=== PATIENT | female | born 1955 | race Caucasian/White ===

== ENCOUNTER → 2018-04-03 | Day surgery (SDC) | payer OTHER ==
[2018-04-02 15:46] VITALS: BP 99/52
--- NOTE | 2018-04-02 16:05 | PCM.EKG ---
[facility] Test Date: 2018-04-02 Test Time: 15:52:51 Pat Name: JERI DOVE Department: Room: Gender: F Public Health Doctor: ANGIE : 1955 Requested By: KENDAL ORTEZ Order Number: [id number] Reading MD: Dustin Nunes Measurements Intervals [place] Rate: 107 P: 73 MO: 132 QRS: -16 QRSD: 74 T: 30 QT: 340 QTc: 453 Interpretive Statements Sinus tachycardia Otherwise normal ECG No previous ECG available for comparison Electronically Signed On 04-03-2018 9:50:43 [employer] by Dustin Nunes Please click the below link to view image of tracing.
[2018-04-02 16:18] LABS: BASOPHIL % 0.3 % (0.0-0.2); EOSINOPHIL # 0.1 10^3/uL (0.0-0.2); HEMOGLOBIN 16.4 g/dL (12.0-15.0); LYMPHOCYTES # 1.6 10^3/uL (1.0-4.8); LYMPHOCYTES % 20.3 % (24.0-44.0); MEAN CELL HGB 31.7 pg (26-34); MEAN CELL HGB CONCENTRATION 34.8 g/dL (33-37); MEAN CORP VOLUME 90.9 fL (78-100); MEAN PLATELET VOLUME 9.7 fL (7.8-11.0); MONOCYTES # 0.6 10^3/uL (0.3-0.8); MONOCYTES % 7.7 % (5.0-12.0); NEUTROPHIL # 5.5 10^3/uL (1.8-7.7); NEUTROPHILS % 70.4 % (41.0-85.0); RED CELL DISTRIBUTION WIDTH 12.4 % (11.5-14.5); WHITE BLOOD CELL 7.8 10^3/uL (4.5-11.0)
[2018-04-02 16:42] LABS: CALCIUM 9.7 mg/dL (8.4-10.5); CARBON DIOXIDE 27.3 mmol/L (20.0-32)
[2018-04-03] VITALS (11 sets, daily range): BP systolic 100–127; BP diastolic 49–87
[~2018-04-03] VITALS: Ht 160 cm; Wt 74.8 kg
[~2018-04-03] MED LIST: ANCEF ONE; ATOR10TA PO; DECADRON ONE; DILAUDID IV PRN; DIPRIVAN IV ONE; EMPA1TAB PO; EPHEDRINE SULFATE ONE; LACTATED RINGERS 1,000 ML ONE; LIDOCAINE 2% VIAL ONE; NS 1000ML 2,000 ML ONE; NS 100ML 100 ML IV ONE; NS 3000ML IRR IR ONE; OLME20TA17 PO; PRECEDEX IV ONE; SENSORCAINE 0.5% VIAL ONE; SODIUM CHLORIDE IR ONE; SUBLIMAZE IV PRN; SUBLIMAZE ONE; TORADOL ONE; TRAM-47 PO; ULTRAM PO STA; VERSED ONE; VORT20TA2 PO; XYLOCAINE 2%-EPI 1:100,000 ONE; ZOFRAN IV PRN; ZOFRAN ONE
[2018-04-03] MEDS: LACTATED RINGERS 1,000 ML IV SCH ×2 (06:13→09:51)
--- NOTE | 2018-04-03 10:18 | OPH ---
DATE OF SURGERY: 04/03/2018 PREOPERATIVE DIAGNOSES: 1. Medial meniscal tear of the left knee. 2. Insufficiency fracture of the medial femoral condyle, left knee. POSTOPERATIVE DIAGNOSES: 1. Medial meniscal tear of the left knee. 2. Insufficiency fracture of the medial femoral condyle, left knee. OPERATIVE PROCEDURE: 1. Arthroscopy of the left knee with partial medial meniscectomy. 2. Through a separate incision is a subchondroplasty of the medial femoral condyle. SURGEON: Lion Chamberlain MD ANESTHESIA: LMA. TOURNIQUET TIME: 37 minutes at 300 mmHg. BLOOD LOSS: 10 mL. DESCRIPTION OF INDICATIONS: The patient is a 62-year-old female with a 5-6 month history of pain about the left knee. She had spontaneous sudden onset of pain about the medial aspect of the left knee. Her symptoms are worse with weightbearing. She complained of night pain. She is no better with anti-inflammatories, home exercise program, bracing. She got about 24 hours relief from intraarticular cortisone injection. The plain x-rays showed some mild arthritic changes medially as well as about the patellofemoral joint. The MRI scan showed that she had some degenerative changes as well as a medial meniscal tear and an insufficiency fracture of the medial femoral condyle. Because of continued pain that localized clinically right over the medial femoral condyle and failure of conservative treatment, the patient was taken to the operating room for the above procedure. DESCRIPTION OF PROCEDURE: The patient was placed on the operating table in the supine position. LMA anesthetic was induced without difficulty. The patient had the left thigh padded and a tourniquet was applied. The left lower extremity was sterilely prepped and draped. The patient had the leg elevated for 60 seconds and then the tourniquet was inflated to 300 mmHg. Arthroscopy portals were made superolateral, anterolateral and anteromedial. The outflow cannula was superolateral, the arthroscope was anterolateral and the probe was anteromedial. The patient then had the suprapatellar pouch viewed. She had some hypertrophic synovium throughout the suprapatellar pouch, but no loose bodies. The patellofemoral joint has diffuse arthritic changes with exposed subchondral bone about the femoral sulcus as well as the patella. There were no loose bodies. Synovectomy was performed later in the case. The medial and lateral gutters were viewed. There were some osteophytes about the distal femur both medially and laterally. Medial compartment was entered. She had diffuse exposed subchondral bone about the medial femoral condyle as well as the medial tibial plateau. There was a tear of the middle and posterior horn of the medial meniscus. The medial meniscus had a partial meniscectomy performed with the shaver. The patient then had the intercondylar notch viewed. The anterior and posterior cruciate ligaments were normal. The patient's lateral compartment was viewed in the [id number] position. There was good maintenance of the lateral articular cartilage and the lateral meniscus was normal. The patient then had synovectomy performed of the medial compartment as well as the medial gutter and the suprapatellar pouch region. Arthroscopic equipment was then removed from the knee. Using the C-arm, we located the defect on the C-arm as it corresponded with the findings on the MRI scan. A small incision was made. The patient had the cannulated drill passed into the medial femoral condyle in the area that corresponded with the insufficiency fracture on the MRI scan. The calcium pyrophosphate was then injected. The arthroscope was placed back into the knee. There was no extravasation of the calcium pyrophosphate. The patient then had the arthroscopic equipment removed from the knee. The cannulated drill bit was removed. The wounds were irrigated and closed with a 3-0 Ethilon. A compressive dressing was applied. The tourniquet was released. She was extubated in the operating room and sent to recovery in stable condition. Lion Chamberlain MD DR: JON/oma JOB# [id number]
== END | disposition home or self-care (01) ==
LOC: SDC 04:21
PROVIDERS: ATTEND Orthopaedic Surgery
DX: M23.222 Derangement of posterior horn of medial meniscus due to old tear or injury, left knee (principal); M84.40XA Pathological fracture, unspecified site, initial encounter for fracture; M67.262 Synovial hypertrophy, not elsewhere classified, left lower leg; I10 Essential (primary) hypertension; E11.9 Type 2 diabetes mellitus without complications; F41.9 Anxiety disorder, unspecified; E78.5 Hyperlipidemia, unspecified; M19.90 Unspecified osteoarthritis, unspecified site; E66.3 Overweight; Z68.29 Body mass index [BMI] 29.0-29.9, adult; Z98.890 Other specified postprocedural states; Z90.49 Acquired absence of other specified parts of digestive tract; Z83.3 Family history of diabetes mellitus; Z82.49 Family history of ischemic heart disease and other diseases of the circulatory system; Z80.3 Family history of malignant neoplasm of breast
CPT/HCPCS: 27442; 29881; 36415; 64450; 76000; 80053; 82948; 85025; 93005; A4217 ×2; A4649 ×6; J0690; J1100; J1885; J2001; J2250; J2405; J3010; J3490 ×3; J7030; J7050; J7120; C1713

== ENCOUNTER → 2018-12-11 | Outpatient (CLI) | payer OTHER ==
[~2018-12-11] MED LIST changes: -ANCEF ONE; -DECADRON ONE; -DILAUDID IV PRN; -DIPRIVAN IV ONE; -EPHEDRINE SULFATE ONE; -LACTATED RINGERS 1,000 ML ONE; -LIDOCAINE 2% VIAL ONE; -NS 1000ML 2,000 ML ONE; -NS 100ML 100 ML IV ONE; -NS 3000ML IRR IR ONE; -PRECEDEX IV ONE; -SENSORCAINE 0.5% VIAL ONE; -SODIUM CHLORIDE IR ONE; -SUBLIMAZE IV PRN; -SUBLIMAZE ONE; -TORADOL ONE; -ULTRAM PO STA; -VERSED ONE; -XYLOCAINE 2%-EPI 1:100,000 ONE; -ZOFRAN IV PRN; -ZOFRAN ONE
--- NOTE | 2018-12-11 16:44 | DIREP ---
PROCEDURE:US ABDOMEN LIMITED (SINGLE ORGAN - QUAD) COMPARISON:[facility], CT, CT-ABDOMEN /PELVIS W/O CONTRAST, 04/22/2013, 12:41 PM. INDICATIONS:R10.11 RUQ PAIN, R11.2 NAUSEA W/VOMITING FINDINGS: PANCREAS:Normal pancreas. LIVER:Normal hepatic parenchymal architecture. No focal hepatic lesion identified. Hepatopetal flow in the portal vein. GALLBLADDER:There are small non shadowing structures adherent to the gallbladder wall measuring up to 3-4 mm in size suggest the presence of gallbladder polyps or tumefactive sludge. In the lumen of the gallbladder. No evidence for gallbladder wall thickening or pericholecystic fluid. Negative sonographic Smyth's sign. BILIARY:There is no biliary ductal dilatation. RIGHT KIDNEY:Normal. No hydronephrosis. OTHER:Negative. No ascites is identified. CBD:0.3 cm GALLBLADDER WALL: 0.2 cm RIGHT KIDNEY: 10.2 x 5.0 x 5.3 cm CONCLUSION: 1. Small gallbladder polyps or tumefactive sludge. No definite gallstones, wall thickening, or pericholecystic fluid. Dictated by: NADINE Physician on 12/11/2018 at 02:04 PM ac
== END | disposition home or self-care (01) ==
LOC: RAD 08:23
PROVIDERS: ATTEND Internal Medicine
DX: K82.4 Cholesterolosis of gallbladder (principal)
CPT/HCPCS: 76705

== ENCOUNTER → 2019-04-05 | Outpatient (CLI) | payer OTHER ==
--- NOTE | 2019-04-05 12:23 | DIREP ---
PROCEDURE:CHEST 2 VIEWS COMPARISON:None. INDICATIONS:R05 COUGH, J04.0 ACUTE LARYNGITIS FINDINGS: LUNGS/PLEURA:Airspace consolidation within the left upper lobe, suspicious for left upper lobe infiltrate. No pleural effusion or pneumothorax is identified. VASCULATURE:Normal. Unremarkable pulmonary vasculature. CARDIAC:Normal. No cardiac silhouette abnormality or cardiomegaly. MEDIASTINUM:Normal. No visible mass or adenopathy. BONES:No acute abnormality. OTHER:Negative. CONCLUSION: 1. Findings most suggestive of left upper lobe pneumonia. Recommend follow-up radiographs after appropriate treatment to ensure complete resolution. Dictated by: Valente Kelsey M.D. On 04/05/2019 at 12:25 PM
== END | disposition home or self-care (01) ==
LOC: RAD 10:42
PROVIDERS: ATTEND Nurse Practitioner
DX: J04.0 Acute laryngitis (principal)
CPT/HCPCS: 71046

== ENCOUNTER → 2019-06-10 | Outpatient (CLI) | payer OTHER ==
--- NOTE | 2019-06-10 16:37 | DIREP ---
PROCEDURE:Digital Screening Mammogram TECHNIQUE:MLO and CC digital images of each breast are provided. Computer Assisted Detection (CAD) was utilized. COMPARISON:[facility], DIGITAL MAMMOGRAM SCREENING, 10/24/2010, 02:10 PM. [facility], DIGITAL MAMMOGRAM SCREENING, 06/03/2009, 10:08 AM. [facility], FILMSCAN, 03/12/2005, 09:21 AM. [facility], , MAMMO BILATERAL SCREENING WITH CAD, 02/20/2016, 04:48 PM. INDICATIONS:SCREENING BREAST COMPOSITION:The breasts are heterogeneously dense, which may obscure small masses. FINDINGS:There are no grouped microcalcifications, masses, or architectural distortions to suggest malignancy. There is no significant change as compared with the previous examination(s). IMPRESSION:No mammographic evidence of malignancy. RECOMMENDATIONS:Routine Screening Mammography per [employer] guidelines. OVERALL FINAL ASSESSMENT:BI-RADS 1 - Negative Mammogram Note: This facility participates in a mammography screening patient reminder system. Dictated by: Pantera Mora DO on 06/10/2019 at 04:33 PM
== END | disposition home or self-care (01) ==
LOC: RAD 15:15
PROVIDERS: ATTEND Internal Medicine
DX: Z12.31 Encounter for screening mammogram for malignant neoplasm of breast (principal)
CPT/HCPCS: 77067